=== PATIENT | male | born 1960 | race Hispanic/Latino ===

== ENCOUNTER 2019-05-14 13:21 | Emergency (ER) | payer BC ==
[2019-05-14] MEDS ORDERED: DIAZEPAM 10 MG/2 ML INJ SYRINGE ONE (13:52)
[2019-05-14 14:00] LABS: Absolute Lymphocytes (CBC) 1.6 K/uL (0.7-4.9); Basophils % 0.4 % (0-1.3); Hematocrit 41.5 % (39.6-49.0); Lymphocytes % 15.9 % (15.3-44.8); MPV 7.8 fL (7.6-11.3); RBC Red Blood Cell Count 4.58 M/uL (4.33-5.43)
[2019-05-14 14:14] LABS: ALT/SGPT 39 U/L (12-78); AST/SGOT 17 U/L (15-37); Albumin 3.8 g/dL (3.4-5.0); Alkaline Phosphatase 148 U/L (45-117); BUN Blood Urea Nitrogen 17 mg/dL (7-18); Bicarbonate 27 mmol/L (21-32); Bilirubin Direct < 0.1 mg/dL (0-0.2); Bilirubin Total 0.3 mg/dL (0.2-1.0); Glucose Level 116 mg/dL (74-106); Potassium 4.9 mmol/L (3.5-5.1); Protein, Total 7.1 g/dL (6.4-8.2); Sodium Level 143 mmol/L (136-145)
--- NOTE | 2019-05-14 14:34 | RAD REPORT ---
EXAM DESCRIPTION: CT - Head Brain Wo Cont - 05/14/2019 2:23 pm CLINICAL HISTORY: Transient alteration of awareness, dizziness COMPARISON: CT head September 2017 TECHNIQUE: Axial 5 mm thick images of the head were obtained without IV contrast. All CT scans are performed using dose optimization technique as appropriate and may include automated exposure control or mA/KV adjustment according to patient size. FINDINGS: No intracranial hemorrhage, mass, edema or shift of mid-line structures. No acute infarcti on changes seen. No abnormal extra-axial fluid collections. Ventricles are normal. Mastoid air cells and visualized portions of the paranasal sinuses are clear. No acute bony findings. IMPRESSION: Negative non-contrast CT head examination for acute findings. No significant change from comparison.
--- NOTE | 2019-05-14 15:18 | ER ---
Nurse's Notes [facility] Name: Deniz Clifford Age: 58 yrs Sex: Male : 1960 Arrival Date: 05/14/2019 Time: 13:23 Bed 18 Private MD: Mele Solitario Diagnosis: Benign paroxysmal vertigo Presentation: 05/14 13:36 Presenting complaint: Patient states: dizziness and sensation that patient is ss "flipping" when turning head only to the left. Symptoms began 1.5 hours ago. Transition of care: patient was not received from another setting of care. Onset of symptoms was May 14, 2019. Risk Assessment: Do you want to hurt yourself or someone else? Patient reports no desire to harm self or others. Initial Sepsis Screen: Does the patient meet any 2 criteria? No. Patient's initial sepsis screen is negative. Does the patient have a suspected source of infection? No. Patient's initial sepsis screen is negative. Care prior to arrival: None. 13:36 Method Of Arrival: Ambulatory ss 13:36 Acuity: EWA 3 ss Historical: - Allergies: 13:38 unknown medication given by dentist; ss - Home Meds: 14:48 meloxicam oral oral [Active]; Relpax Oral [Active]; mg2 - PMHx: 13:38 kidney cancer; Migraines; ss - PSHx: 13:38 right kidney removed; Hernia repair; metal plates in neck; metal apple in knee; ss - Immunization history:: Adult Immunizations up to date. - Social history:: Smoking status: Patient/guardian denies using tobacco. - Ebola Screening: : Patient denies exposure to infectious person Patient denies travel to an Ebola-affected area in the 21 days before illness onset. Screenin:47 Abuse screen: Denies threats or abuse. Denies injuries from another. Nutritional mg2 screening: No deficits noted. Tuberculosis screening: No symptoms or risk factors identified. Fall Risk Secondary diagnosis (15 points) dizziness. IV access (20 points). Assessment: 14:46 General: Appears in no apparent distress. comfortable, Behavior is calm, cooperative. mg2 Pain: Denies pain. Neuro: Level of Consciousness is awake, alert, obeys commands, Oriented to person, place, time, situation. Neuro: Reports dizziness, since this morning. Cardiovascular: Capillary refill < 3 seconds Patient's skin is warm and dry. Respiratory: Airway is patent Respiratory effort is even, unlabored, Respiratory pattern is regular, symmetrical. GI: No signs and/or symptoms were reported involving the gastrointestinal system. : No signs and/or symptoms were reported regarding the genitourinary system. EENT: No signs and/or symptoms were reported regarding the EENT system. Derm: Skin is intact, is healthy with good turgor, Skin is pink, warm \\T\\ dry. normal. Musculoskeletal: No signs and/or symptoms reported regarding the musculoskeletal system. 15:31 Reassessment: Patient appears in no apparent distress at this time. Patient denies pain mg2 at this time. Patient states feeling better. Vital Signs: 13:38 BP 139 / 94; Pulse 67; Resp 16; Temp 98.5(TE); Pulse Ox 97% on R/A; Weight 100.7 kg; ss Height 5 ft. 7 in. (170.18 cm); Pain 0/10; 14:48 BP 143 / 75; Pulse 65; Resp 18; Pulse Ox 100% on R/A; mg2 15:31 BP 135 / 78; Pulse 62; Resp 18; Temp 98.2; Pulse Ox 100% on R/A; Pain 0/10; mg2 13:38 Body Mass Index 34.77 (100.70 kg, 170.18 cm) ss ED Course: 13:23 Patient arrived in ED. as 13:23 Mele Solitario MD is Private Physician. as 13:34 Aquiles Lundberg NP is PHCP. pm1 13:34 Chaz Christie MD is Attending Physician. pm1 13:37 Triage completed. ss 13:38 Arm band placed on right wrist. ss 13:44 Rosendo Bailon RN is Primary Nurse. mg2 14:00 Inserted saline lock: 20 gauge in right antecubital area, using aseptic technique. mg2 Blood collected. 14:23 CT completed. Patient tolerated procedure well. Patient moved back from CT. kw1 14:24 CT Head Brain wo Cont In Process Unspecified. EDMS 14:47 No provider procedures requiring assistance completed. mg2 14:48 Patient has correct armband on for positive identification. Pulse ox on. NIBP on. mg2 Notified Nurse Practitioner and/or Physician Vacuum Tank Tender of. 15:32 IV discontinued, intact, bleeding controlled, No redness/swelling at site. Pressure mg2 dressing applied. Administered Medications: 13:59 Drug: Valium 5 mg Route: IVP; Site: right antecubital; mg2 14:37 Follow up: Response: No adverse reaction mg2 Outcome: 15:17 Discharge ordered by . pm1 15:32 Discharged to home ambulatory. mg2 15:32 Condition: stable 15:32 Discharge instructions given to patient, Instructed on discharge instructions, follow up and referral plans. medication usage, Demonstrated understanding of instructions, follow-up care, medications, Prescriptions given X 1. 15:32 Patient left the ED. mg2 Signatures: Dispatcher [employer] EDMS Karla Singh Shelby, JAZMINE RN ss Aquiles Lundberg, [employer] COMM[employer] RELATIONS SPECIALIST pm1 Trisha Jacobson 1 Rosendo Bailon RN RN mg2
--- NOTE | 2019-05-14 15:18 | EDPHYS ---
Physician Documentation [facility] Name: Deniz Clifford Age: 58 yrs Sex: Male : 1960 Arrival Date: 05/14/2019 Time: 13:23 Bed 18 Private MD: Mele Solitario ED Physician Chaz Christie HPI: 05/14 13:59 This 58 yrs old Male presents to ER via Ambulatory with complaints of pm1 Dizziness. 13:59 The patient presents with sense of spinning. pm1 13:59 Onset: The symptoms/episode began/occurred 1.5 hour(s) ago. Context: occurred at home, pm1 occurred while the patient was getting up from bed, just prior to the episode the patient experienced no apparent symptoms, No chest pain, shortness of breath, weakness, headache, palpitations, numbness, tingling. Associated signs and symptoms: Pertinent negatives: chest pain, head injury, headache, shortness of breath, vomiting. Severity of symptoms: in the emergency department the symptoms have improved Pain is currently a 0 / 10. Patient's baseline: Neuro: alert and fully oriented, Motor: no deficits, Ambulation: walks without assistance, Speech: normal, The patient has a previous history of vertigo. The patient has experienced a previous episode, approximately 1 years ago. Patient works night shifts. Woke up at noon and started experiencing the sensation of him spinning when he turned in his bed to his left side. [place] like he was a log rolling down a hill. Resolved with rolling to his right side. Sensation of spinning with sitting up. Historical: - Allergies: 13:38 unknown medication given by dentist; ss - Home Meds: 14:48 meloxicam oral oral [Active]; Relpax Oral [Active]; mg2 - PMHx: 13:38 kidney cancer; Migraines; ss - PSHx: 13:38 right kidney removed; Hernia repair; metal plates in neck; metal apple in knee; ss - Immunization history:: Adult Immunizations up to date. - Social history:: Smoking status: Patient/guardian denies using tobacco. - Ebola Screening: : Patient denies exposure to infectious person Patient denies travel to an Ebola-affected area in the 21 days before illness onset. ROS: 13:59 Constitutional: Negative for fever, chills, and weight loss, Eyes: Negative for injury, pm1 pain, redness, and discharge, ENT: Negative for injury, pain, and discharge, Neck: Negative for injury, pain, and swelling, Cardiovascular: Negative for chest pain, palpitations, and edema, Respiratory: Negative for shortness of breath, cough, wheezing, and pleuritic chest pain, Abdomen/GI: Negative for abdominal pain, nausea, vomiting, diarrhea, and constipation, Back: Negative for injury and pain, MS/Extremity: Negative for injury and deformity, Skin: Negative for injury, rash, and discoloration. 13:59 Neuro: Positive for dizziness, Negative for headache, numbness, tingling, weakness. Exam: 13:59 Constitutional: This is a well developed, well nourished patient who is awake, alert, pm1 and in no acute distress. Head/Face: Normocephalic, atraumatic. Neck: Trachea midline, no thyromegaly or masses palpated, and no cervical lymphadenopathy. Supple, full range of motion without nuchal rigidity, or vertebral point tenderness. No Meningismus. Chest/axilla: Normal chest wall appearance and motion. Nontender with no deformity. No lesions are appreciated. Cardiovascular: Regular rate and rhythm with a normal S1 and S2. No gallops, murmurs, or rubs. No pulse deficits. Respiratory: Lungs have equal breath sounds bilaterally, clear to auscultation and percussion. No rales, rhonchi or wheezes noted. No increased work of breathing, no retractions or nasal flaring. Abdomen/GI: Soft, non-tender, with normal bowel sounds. No distension or tympany. No guarding or rebound. No evidence of tenderness throughout. Back: No spinal tenderness. No costovertebral tenderness. Full range of motion. Skin: Warm, dry with normal turgor. Normal color with no rashes, no lesions, and no evidence of cellulitis. MS/ Extremity: Pulses equal, no cyanosis. Neurovascular intact. Full, normal range of motion. 13:59 Neuro: Orientation: is normal, Cranial nerves: CN II- XII are normal as tested, Cerebellar function: normal finger to nose testing, Motor: is normal, moves all fours, strength is normal, strength is 5/5 in all extremities. 15:02 Neuro: Positive roxana-hallpike maneuver. sensation of spinning reproduced with head pm1 tilted down 45 degrees and turned to the left. Symptoms not present with head turned to the right. Vertigo resolved less than 15 seconds with patient sitting up from lying position . Vital Signs: 13:38 BP 139 / 94; Pulse 67; Resp 16; Temp 98.5(TE); Pulse Ox 97% on R/A; Weight 100.7 kg; ss Height 5 ft. 7 in. (170.18 cm); Pain 0/10; 14:48 BP 143 / 75; Pulse 65; Resp 18; Pulse Ox 100% on R/A; mg2 15:31 BP 135 / 78; Pulse 62; Resp 18; Temp 98.2; Pulse Ox 100% on R/A; Pain 0/10; mg2 13:38 Body Mass Index 34.77 (100.70 kg, 170.18 cm) ss MDM: 13:35 Patient medically screened. pm1 15:16 Data reviewed: vital signs. Data interpreted: Pulse oximetry: on room air is 100 %. pm1 Interpretation: normal. Counseling: I had a detailed discussion with the patient and/or guardian regarding: the historical points, exam findings, and any diagnostic results supporting the discharge/admit diagnosis, lab results, radiology results, the need for outpatient follow up, to return to the emergency department if symptoms worsen or persist or if there are any questions or concerns that arise at home. 05/14 13:43 Order name: Basic Metabolic Panel; Complete Time: 14:21 pm1 05/14 13:43 Order name: CBC with Diff; Complete Time: 14:21 pm1 05/14 13:43 Order name: CT Head Brain wo Cont; Complete Time: 14:36 pm1 05/14 13:43 Order name: LFT's; Complete Time: 14:21 pm1 05/14 13:43 Order name: EKG; Complete Time: 13:43 pm1 05/14 13:43 Order name: EKG - Nurse/Tech; Complete Time: 13:59 pm1 05/14 13:43 Order name: IV Saline Lock; Complete Time: 13:59 pm1 05/14 13:43 Order name: Labs collected and sent; Complete Time: 13:59 pm1 Administered Medications: 13:59 Drug: Valium 5 mg Route: IVP; Site: right antecubital; mg2 14:37 Follow up: Response: No adverse reaction mg2 Disposition: 15:41 Co-signature as Attending Physician, Chaz Christie MD. Disposition: 05/14/19 15:17 Discharged to Home. Impression: Benign paroxysmal vertigo. - Condition is Stable. - Discharge Instructions: Benign Positional Vertigo. - Prescriptions for Valium 5 mg Oral Tablet - take 1 tablet by ORAL route every 8 hours As needed; 20 tablet. - Work release form, Medication Reconciliation Form, Thank You Letter, Antibiotic Education, Prescription Opioid Use form. - Follow up: Emergency Department; When: As needed; Reason: Worsening of condition. Follow up: Private Physician; When: 2 - 3 days; Reason: Recheck today's complaints, Continuance of care, Re-evaluation by your physician. - Problem is new. - Symptoms have improved. Signatures: Dispatcher [employer] EDMS Taty Rich RN RN Aquiles Lundberg, PIECE CUTTER PIECE CUTTER pm1 Chaz Christie MD MD Rosendo Bailon RN RN mg2 Corrections: (The following items were deleted from the chart) 15:32 15:17 05/14/2019 15:17 Discharged to Home. Impression: Benign paroxysmal vertigo. mg2 Condition is Stable. Forms are Medication Reconciliation Form, Thank You Letter, Antibiotic Education, Prescription Opioid Use. Follow up: Emergency Department; When: As needed; Reason: Worsening of condition. Follow up: Private Physician; When: 2 - 3 days; Reason: Recheck today's complaints, Continuance of care, Re-evaluation by your physician. Problem is new. Symptoms have improved. pm1
[2019-05-14 16:07] VITALS: O2SAT 100
[2019-05-14 16:08] VITALS: BP 135/78; TEMP 98.2
--- NOTE | 2019-05-15 17:22 | EKG ---
Test Date: 2019-05-14 Test Time: 14:01:33 Financial Operations Consultant: MEASUREMENT RESULTS: Intervals: Rate: 72 SD: 176 QRSD: 92 QT: 358 QTc: 392 [place]: P: 43 SD: 176 QRS: 46 T: 48 INTERPRETIVE STATEMENTS: Normal sinus rhythm Normal ECG Compared to ECG 09/28/2017 18:23:35 No significant changes Electronically Signed On 05-15-19 17:21:36 CDT by Tacho Davis
== END 2019-05-14 15:32 | disposition home or self-care (01) ==
LOC: ER 13:21
DX: H81.10 Benign paroxysmal vertigo, unspecified ear (principal); Z85.528 Personal history of other malignant neoplasm of kidney
CPT/HCPCS: 93005; 85025; 80048; 36415; 80076; 70450; 96374; 99284; J3360

== ENCOUNTER 2019-10-30 00:59 | Observation (INO) | payer BC ==
[2019-10-30 01:22] LABS: Absolute Lymphocytes (CBC) 2.9 K/uL (0.7-4.9); Basophils % 0.5 % (0-1.3); Hematocrit 41.4 % (39.6-49.0); Lymphocytes % 28.6 % (15.3-44.8); MPV 7.9 fL (7.6-11.3); RBC Red Blood Cell Count 4.58 M/uL (4.33-5.43)
[2019-10-30 01:23] LABS: Protime INR 0.97
[2019-10-30 01:49] LABS: ALT/SGPT 40 U/L (12-78); AST/SGOT 19 U/L (15-37); Albumin 3.6 g/dL (3.4-5.0); Alkaline Phosphatase 145 U/L (45-117); BUN Blood Urea Nitrogen 19 mg/dL (7-18); Bicarbonate 26 mmol/L (21-32); Bilirubin Direct < 0.1 mg/dL (0-0.2); Bilirubin Total 0.3 mg/dL (0.2-1.0); Glucose Level 116 mg/dL (74-106); Magnesium 2.3 mg/dL (1.8-2.4); NT PRO-BNP 16 pg/mL (<125); Protein, Total 7.4 g/dL (6.4-8.2); Sodium Level 142 mmol/L (136-145); Troponin (Emerg Dept Use Only) < 0.02 ng/mL (0.0-0.045)
--- NOTE | 2019-10-30 02:42 | EDPHYS ---
Physician Documentation [facility] Name: Deniz Clifford Age: 59 yrs Sex: Male : 1960 Arrival Date: 10/30/2019 Time: 01:00 Bed 13 Private MD: ED Physician Jovon Snyder HPI: 10/29 03:14 This 59 yrs old Male presents to ER via EMS with complaints of Chest Pain. tw4 03:14 The patient or guardian reports chest pain that is located primarily in the anterior tw4 chest wall. Onset: today. The pain does not radiate. Associated signs and symptoms: Pertinent positives: diaphoresis. Duration: The patient or guardian reports a single episode. Severity of pain: At its worst the pain was. Historical: - Allergies: 01:05 unknown medication given by dentist; rr5 - Home Meds: 01:05 Relpax Oral [Active]; meloxicam Oral [Active]; rr5 - PMHx: 01:05 kidney cancer; Migraines; rr5 - PSHx: 01:05 Hernia repair; Knee surgery; leg surgery; rr5 - Immunization history:: Adult Immunizations up to date. - Social history:: Smoking status: unknown Patient uses alcohol, occasionally. Patient/guardian denies using street drugs. ROS: 03:14 Constitutional: Negative for fever, chills, and weight loss, Eyes: Negative for injury, tw4 pain, redness, and discharge, Respiratory: Negative for shortness of breath, cough, wheezing, and pleuritic chest pain, Abdomen/GI: Negative for abdominal pain, nausea, vomiting, diarrhea, and constipation, Back: Negative for injury and pain, MS/Extremity: Negative for injury and deformity, Skin: Negative for injury, rash, and discoloration, Neuro: Negative for headache, weakness, numbness, tingling, and seizure. 03:14 Cardiovascular: Positive for chest pain, Negative for edema, orthopnea, palpitations, paroxysmal nocturnal dyspnea. Exam: 03:14 Constitutional: This is a well developed, well nourished patient who is awake, alert, tw4 and in no acute distress. Head/Face: Normocephalic, atraumatic. Chest/axilla: Normal chest wall appearance and motion. Nontender with no deformity. No lesions are appreciated. Cardiovascular: Regular rate and rhythm with a normal S1 and S2. No gallops, murmurs, or rubs. Normal PMI, no JVD. No pulse deficits. Respiratory: Lungs have equal breath sounds bilaterally, clear to auscultation and percussion. No rales, rhonchi or wheezes noted. No increased work of breathing, no retractions or nasal flaring. Abdomen/GI: Soft, non-tender, with normal bowel sounds. No distension or tympany. No guarding or rebound. No evidence of tenderness throughout. Back: No spinal tenderness. No costovertebral tenderness. Full range of motion. MS/ Extremity: Pulses equal, no cyanosis. Neurovascular intact. Full, normal range of motion. Neuro: Awake and alert, GCS 15, oriented to person, place, time, and situation. Cranial nerves II-XII grossly intact. Motor strength 5/5 in all extremities. Sensory grossly intact. Cerebellar exam normal. Normal gait. Vital Signs: 01:05 BP 150 / 91; Pulse 61; Resp 18; Temp 98.7; Pulse Ox 99% ; Weight 102.06 kg; Height 5 rr5 ft. 7 in. (170.18 cm); Pain 0/10; 01:30 BP 143 / 87; Pulse 74; Resp 17; Pulse Ox 96% on R/A; rv 02:10 BP 112 / 75; Pulse 75; Resp 16; Pulse Ox 99% ; rr5 03:00 BP 121 / 75; Pulse 80; Resp 17; Pulse Ox 100% on R/A; rr5 03:59 BP 129 / 84; Pulse 79; Resp 17; Temp 98.9; Pulse Ox 99% ; rr5 04:30 BP 122 / 88; Pulse 75; Resp 16; Pulse Ox 99% ; rr5 01:05 Body Mass Index 35.24 (102.06 kg, 170.18 cm) rr5 MDM: 01:04 Patient medically screened. tw4 03:26 Differential diagnosis: acute myocardial infarction, acute pericarditis, esophagitis, tw4 gastritis, gastroesophageal reflux disease (GERD), myocarditis, peptic ulcer disease, pericarditis, pulmonary embolus, stable angina. HEART Score: History: Moderately Suspicious (1), ECG: Normal (0), Age: > 45 and < 65 years (1), Risk Factors: 1 or 2 risk factors (1), Troponin: < or = 1 x Normal Limit (0), Total Score = 3. The patient was given aspirin in the Emergency Department. Data reviewed: vital signs, nurses notes. Data interpreted: Pulse oximetry: Interpretation:. Counseling: I had a detailed discussion with the patient and/or guardian regarding: the historical points, exam findings, and any diagnostic results supporting the discharge/admit diagnosis, lab results, radiology results. Physician consultation: Dulce Esquivel MD regarding admission, to the telemetry unit. patient's condition, and will see patient in ED. 10/29 01:15 Order name: Basic Metabolic Panel; Complete Time: :59 rr5 10/29 01:59 Interpretation: Normal except: CL 109; GLUC 116; BUN 19; CRE 1.45; GFR 50. tw4 10/29 01:15 Order name: CBC with Diff; Complete Time: :59 rr10/29 01:15 Order name: LFT's; Complete Time: :59 rr5 10/29 01:15 Order name: Magnesium; Complete Time: 59 10/29 01:15 Order name: NT PRO-BNP; Complete Time: :59 rr10/29 01:15 Order name: PT-INR; Complete Time: :59 rr5 10/29 01:15 Order name: Troponin (emerg Dept Use Only); Complete Time: :59 rr5 10/29 01:15 Order name: XRAY Chest (1 view) 10/29 01:15 Order name: EKG; Complete Time: 01:16 5 10/29 01:15 Order name: Cardiac monitoring; Complete Time: :15 10/29 01:15 Order name: EKG - Nurse/Tech; Complete Time: 01:15 rr10/29 01:15 Order name: IV Saline Lock; Complete Time: 01:15 10/29 01:15 Order name: Labs collected and sent; Complete Time: :15 rr10/29 01:15 Order name: O2 Per Protocol; Complete Time: :15 10/29 01:15 Order name: O2 Sat Monitoring; Complete Time: 01:15 rr5 EC:14 Rate is 66 beats/min. Rhythm is regular. QRS [place] is Normal. [place] interval is normal. QRS tw4 interval is normal. QT interval is normal. No Q waves. T waves are Normal. No ST changes noted. Clinical impression: Normal ECG. Interpreted by me. Reviewed by me. Administered Medications: No medications were administered Disposition: 10/30/19 02:41 Hospitalization ordered by Dulce Esquivel for Observation. Preliminary diagnosis is Other chest pain. - Bed requested for Telemetry/MedSurg (observation). - Status is Observation. rr5 - Condition is Stable. - Problem is new. - Symptoms have improved. Signatures: Dispatcher [employer] EDMS Apple Almaraz, RN RN Jovon Snyder MD MD tw4 Bao Young RN RN rr5 Corrections: (The following items were deleted from the chart) 03:14 02:41 Hospitalization Ordered by Vinay Sheridan DO for Observation. Preliminary tw4 diagnosis is Other chest pain. Bed requested for Telemetry/MedSurg (observation). Status is Observation. Condition is Stable. Problem is new. Symptoms have improved. tw4 03:27 03:14 10/30/2019 02:41 Hospitalization Ordered by Dulce Esquivel MD for Observation. cg Preliminary diagnosis is Other chest pain. Bed requested for Telemetry/MedSurg (observation). Status is Observation. Condition is Stable. Problem is new. Symptoms have improved. tw4 03:56 03:27 10/30/2019 02:41 Hospitalization Ordered by Dulce Esquivel MD for Observation. cg Preliminary diagnosis is Other chest pain. Bed requested for Telemetry/MedSurg (observation). Status is Observation. Condition is Stable. Problem is new. Symptoms have improved. 04:41 03:56 10/30/2019 02:41 Hospitalization Ordered by Dulce Esquivel MD for Observation. rr5 Preliminary diagnosis is Other chest pain. Bed requested for Telemetry/MedSurg (observation). Status is Observation. Condition is Stable. Problem is new. Symptoms have improved.
--- NOTE | 2019-10-30 02:42 | ER ---
Nurse's Notes [facility] Name: Deniz Clifford Age: 59 yrs Sex: Male : 1960 Arrival Date: 10/30/2019 Time: 01:00 Bed 13 Private MD: Diagnosis: Other chest pain Presentation: 10/29 01:05 Chief complaint: EMS states: patient complaint of left sided chest pain started 1 1/ rr5 hour ago (2330). described as on and off, sharp pain. negative for SOB, diaphoresis. breath sound is clear. 01:05 Coronavirus screen: Proceed with normal triage. Patient denies a cough. Patient denies rr5 shortness of breath or difficulty breathing. Patient denies measured and/or subjective temperature greater than 100.4F prior to today's visit. Patient denies travel on a cruise ship or to a country the [facility] currently lists as an affected area. Patient denies contact with known and/or suspected case of COVID-19. Ebola Screen: Patient negative for fever greater than or equal to 101.5 degrees Fahrenheit, and additional compatible Ebola Virus Disease symptoms Patient denies exposure to infectious person. Patient denies travel to an Ebola-affected area in the 21 days before illness onset. Initial Sepsis Screen: Does the patient meet any 2 criteria? No. Patient's initial sepsis screen is negative. Does the patient have a suspected source of infection? No. Patient's initial sepsis screen is negative. Risk Assessment: Do you want to hurt yourself or someone else? Patient reports no desire to harm self or others. Onset of symptoms was October 29, 2019 at 23:30. 01:05 Method Of Arrival: EMS: [facility] rr5 01:05 Acuity: EWA 3 rr5 Historical: - Allergies: 01:05 unknown medication given by dentist; rr5 - Home Meds: 01:05 Relpax Oral [Active]; meloxicam Oral [Active]; rr5 - PMHx: 01:05 kidney cancer; Migraines; rr5 - PSHx: 01:05 Hernia repair; Knee surgery; leg surgery; rr5 - Immunization history:: Adult Immunizations up to date. - Social history:: Smoking status: unknown Patient uses alcohol, occasionally. Patient/guardian denies using street drugs. Screenin:16 Abuse screen: Denies threats or abuse. Denies injuries from another. Nutritional rr5 screening: No deficits noted. Tuberculosis screening: No symptoms or risk factors identified. Fall Risk IV access (20 points). Total Villatoro Fall Scale indicates No Risk (0-24 pts). Assessment: 01:05 General: Appears in no apparent distress. comfortable, Behavior is calm, cooperative, rr5 appropriate for age. 01:05 Pain: Complains of pain in chest Pain does not radiate. Pain currently is 0 out of 10 rr5 on a pain scale. Quality of pain is described as aching, Pain began suddenly, Is intermittent. Neuro: Level of Consciousness is awake, alert, obeys commands, Oriented to person, place, time, situation. Cardiovascular: Reports chest pain, Denies diaphoresis, shortness of breath, Capillary refill < 3 seconds Patient's skin is warm and dry. Respiratory: Airway is patent Respiratory effort is even, unlabored, Respiratory pattern is regular, symmetrical, Denies cough. GI: No signs and/or symptoms were reported involving the gastrointestinal system. : No signs and/or symptoms were reported regarding the genitourinary system. EENT: No signs and/or symptoms were reported regarding the EENT system. Derm: Skin is intact, is healthy with good turgor, Skin temperature is warm. Musculoskeletal: Circulation, motion, and sensation intact. Capillary refill < 3 seconds. 02:10 Reassessment: Patient appears in no apparent distress at this time. Patient and/or rr5 family updated on plan of care and expected duration. Pain level reassessed. Patient is alert, oriented x 3, equal unlabored respirations, skin warm/dry/pink. ED provider will speak to hospitalist for admission. 03:30 Reassessment: Patient appears in no apparent distress at this time. No changes from rr5 previously documented assessment. dr. neal at bedside examining the patient. 04:39 Reassessment: Patient appears in no apparent distress at this time. Patient is alert, rr5 oriented x 3, equal unlabored respirations, skin warm/dry/pink. admitted to room 211. vitally stable, no complaints made. with IV cannula intact. Patient denies pain at this time. Vital Signs: 01:05 BP 150 / 91; Pulse 61; Resp 18; Temp 98.7; Pulse Ox 99% ; Weight 102.06 kg; Height 5 rr5 ft. 7 in. (170.18 cm); Pain 0/10; 01:30 BP 143 / 87; Pulse 74; Resp 17; Pulse Ox 96% on R/A; rv 02:10 BP 112 / 75; Pulse 75; Resp 16; Pulse Ox 99% ; rr5 03:00 BP 121 / 75; Pulse 80; Resp 17; Pulse Ox 100% on R/A; rr5 03:59 BP 129 / 84; Pulse 79; Resp 17; Temp 98.9; Pulse Ox 99% ; rr5 04:30 BP 122 / 88; Pulse 75; Resp 16; Pulse Ox 99% ; rr5 01:05 Body Mass Index 35.24 (102.06 kg, 170.18 cm) rr5 ED Course: 01:00 Patient arrived in ED. ds1 01:04 Jovon Snyder MD is Attending Physician. tw4 01:05 Arm band placed on right wrist. rr5 01:05 EKG completed in triage. Results shown to MD. rr5 01:05 roll skinner on. Pulse ox on. NIBP on. rr5 01:10 Inserted saline lock: 20 gauge in right antecubital area, using aseptic technique. rr5 Blood collected. 01:10 No provider procedures requiring assistance completed. Patient maintains SpO2 rr5 saturation greater than 95% on room air. 01:14 Bao Young, JAZMINE is Primary Nurse. rr5 01:19 Triage completed. rr5 01:23 Patient has correct armband on for positive identification. Placed in gown. Bed in low rr5 position. Call light in reach. 01:40 XRAY Chest (1 view) In Process Unspecified. EDMS 02:41 Vinay Sheridan DO is Hospitalizing Provider. tw4 03:14 Hospitalizing Provider role handed off by Vinay Sheridan DO tw4 03:14 Dulce Esquivel MD is Hospitalizing Provider. tw4 04:37 Patient admitted, IV remains in place. intact, No redness/swelling at site. rr5 Administered Medications: No medications were administered Outcome: 02:41 Decision to Hospitalize by Provider. tw4 04:37 Admitted to Med/surg accompanied by tech, via wheelchair, room 211, with chart, Report rr5 called to [facility] 04:37 Condition: stable 04:37 Instructed on the need for admit. 04:41 Patient left the ED. rr5 Signatures: Dispatcher [employer] EDMO Marifer Franco ds1 Jovon Snyder MD MD tw4 Yanick Bettencourt RN RN Bao Aranda RN RN rr5
[2019-10-30] MEDS ORDERED: NITROGLYCERIN 0.4 MG/TAB SL PRN (04:23)
[2019-10-30] MEDS ORDERED: MORPHINE 4 MG/ML SYR IV PRN (04:23)
[2019-10-30] MEDS ORDERED: ACETAMINOPHEN 500 MG TAB PO PRN (04:23)
--- NOTE | 2019-10-30 04:31 | P.HP ---
Certification for Inpatient Patient admitted to: Inpatient With expected LOS: >2 Midnights Practitioner: I am a practitioner with admitting privileges, knowledge of patient current condition, hospital course, and medical plan of care. Services: Services provided to patient in accordance with Admission requirements found in Title 42 Section 412.3 of the Code of Federal Regulations Patient History Date of Service: 10/30/19 Reason for admission: Chest pain History of Present Illness: Patient is a 59-year-old male with past medical history of kidney cancer status post nephrectomy comes in with sudden onset of chest pain while at work. Pain is intermittent left-sided not associated with any nausea or vomiting. No diaphoresis. Patient has not experienced pain like this previously. Symptoms were intermittent moderate and progressive. Patient came into the ER for further evaluation In the ER his initial cardiac enzyme and EKG were negative. Patient was referred for admission Allergies unknown medication Allergy (Uncoded 09/28/17 19:40) Unknown Home medications list reviewed: Yes Home Medications: Acetaminophen [Tylenol] 325 mg PO QIDP PRN 08/21/14 Eletriptan HBr [Relpax] 40 mg PO PRN PRN 08/21/14 - Past Medical/Surgical History -: History of kidney cancer -: Migraines -: Hernia repair -: Knee surgery -: Leg surgery - Family History Mother -: Diabetes Brother -: Stroke - Social History Smoking Status: Light Tobacco smoker (1-9 cigarettes/day) Alcohol use: Yes Place of Residence: Home Review of Systems 10-point ROS is otherwise unremarkable Cardiovascular: As per HPI Physical Examination - Vital Signs Temperature: 98.7 F Blood Pressure: 150/91 Pulse: 61 Respirations: 18 Pulse Ox (%): 99 - Physical Exam General: Alert, Oriented x3, Mild distress, Obese HEENT: Atraumatic, PERRLA, Mucous membr. moist/pink, EOMI, Sclerae nonicteric Neck: Supple, JVD not distended Respiratory: Clear to auscultation bilaterally, Normal air movement Cardiovascular: No edema, Normal pulses, Regular rate/rhythm, Normal S1 S2 Gastrointestinal: Normal bowel sounds, Soft and benign, Non-distended, No tenderness Musculoskeletal: No tenderness Integumentary: No rashes Neurological: Normal speech, Normal strength at 5/5 x4 extr, Normal tone, Normal affect - Studies Laboratory Data (last 24 hrs) 10/30/19 01:10: PT 11.5, INR 0.97 10/30/19 01:10: WBC 10.3, Hgb 14.2, Hct 41.4, Plt Count 219 10/30/19 01:10: Sodium 142, Potassium 4.0, BUN 19 H, Creatinine 1.45 H, Glucose 116 H, Magnesium 2.3, Total Bilirubin 0.3, AST 19, ALT 40, Alkaline Phosphatase 145 H Assessment and Plan - Plan Chest pain rule out ACS. Initial cardiac enzyme and EKG normal. Will start on chest pain guidelines with beta willa, aspirin and statin. Consult cardiology. Acute versus acute on chronic kidney injury. Monitor creatinine level. Avoid nephrotoxins. IV fluids Obesity counseled History of renal cancer status post nephrectomy History of migraine headaches stable. Resume home medications as appropriate DVT prophylaxis with Lovenox Plan is to rule out ACS if negative can likely follow up with cardiology as outpatient for stress test and echocardiogram - Advance Directives Does patient have a Living Will: No Does patient have a Durable POA for Healthcare: No - Code Status/Comfort Care Code Status Assessed: Yes
[2019-10-30 05:21] VITALS: BMI 34.8
[2019-10-30 05:23] LABS: HDL Cholesterol 37 mg/dL (40-60); LDL Cholesterol, Calculated 92 (<130); Troponin I < 0.02 ng/mL (0.0-0.045)
[2019-10-30] MEDS ORDERED: ELETRIPTAN HBR 40 MG PO PRN (07:38)
[2019-10-30] MEDS ORDERED: lisinopriL 10 MG TAB PO SCH (09:00)
[2019-10-30] MEDS ORDERED: METOPROLOL TAR 50 MG TAB PO SCH (09:00)
[2019-10-30] MEDS ORDERED: ENOXAPARIN 40 MG/0.4 ML SQ SCH (09:00)
[2019-10-30] MEDS ORDERED: ASPIRIN EC 81 MG TAB PO SCH (09:00)
--- NOTE | 2019-10-30 09:31 | CON ---
Date of Consultation: 10/30/2019 Reason For Consultation: Chest pain. History Of Present Illness: Mr. Clifford is a 59-year-old [place] male without any signific ant past cardiac history. He has a history of migraine and he is status post right nephrectomy secon lorelei to renal cancer. 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 The day after that, he developed sharp, sta bbing chest pain throughout the chest that would come and go for seconds and sometimes will come back every 5 minutes. His last episode, however, lasted about an hour and a half without any nausea, vom iting, diaphoresis, PND, orthopnea, pedal edema, palpitations, or syncope. His EKG was normal. His troponin was negative. His chest x-ray was negative. Allergies: NONE. Medications: At home include meloxicam. Review of Systems: Negative. Social History: Negative. Family History: Positive for strokes. Physical Examination: Vital Signs: Stable. He was afebrile. General: In no acute distress. HEENT: Negative. Neck: Supple with no bruit. Chest: Clear to auscultation and percussion. Cardiac: Revealed a regular rhythm and rate. No murmurs, gallops, or rubs. Abdomen: Benign. Extremities: Revealed no clubbing, cyanosis, or edema. Laboratory Data: His EKG was normal. His creatinine was 1.45. Triglyceride was 395, cholesterol of 208. Impression And Plan: Chest pain, atypical, equivocal, possible angina, although unlikely. The patie nt has a family history of heart disease. He has mixed dyslipidemia. His CPK was negative. MB was negative. Troponin was negative. EKG was negative. He is pain-free now. I am comfortable with him going home. I will make arrangements for him to have an echocardiogram and an MPI. Regarding his t riglyceride, I recommended a low carb diet for now and we will recheck his blood work in about 3 jose carlos hs. We will need to follow up on his kidney function and I will take care of that down the road. e case was discussed with Dr. Esquivel. PIERRE/RIKIL Voice ID: [id number] Report ID: [id number]
[2019-10-30 10:07] VITALS: O2SAT 96
--- NOTE | 2019-10-30 11:39 | RAD REPORT ---
EXAM DESCRIPTION: RAD - Chest Single View - 10/30/2019 1:41 am CLINICAL HISTORY: CHEST PAIN Chest pain. COMPARISON: Chest Single View dated 04/04/2016 FINDINGS: Portable technique limits examination quality. The lungs are grossly clear. The heart is normal in size. No displaced fractures.Cervical hardware pl ate. IMPRESSION: No acute intrathoracic process suspected.
--- NOTE | 2019-10-30 14:22 | EKG ---
Test Date: 2019-10-30 Test Time: 01:03:03 Instructor Painting: RR MEASUREMENT RESULTS: Intervals: Rate: 66 CA: 164 QRSD: 96 QT: 378 QTc: 396 [place]: P: 64 CA: 164 QRS: 77 T: 62 INTERPRETIVE STATEMENTS: Normal sinus rhythm Normal ECG Compared to ECG 05/14/2019 14:01:33 No significant changes Electronically Signed On 10-30-19 14:22:29 CDT by Jd Douglass
[2019-10-30 15:20] VITALS: BP 127/80; TEMP 98.5
[2019-10-30] MEDS ORDERED: ATORVASTATIN 40 MG TAB PO SCH (21:00)
== END 2019-10-30 13:57 | disposition home or self-care (01) ==
LOC: ER 00:59 → ERHOLD 03:19 → 2ND 04:21
PROVIDERS: ADMIT Family Medicine; ATTEND Family Medicine
DX: R07.89 Other chest pain (principal); N17.9 Acute kidney failure, unspecified; E78.2 Mixed hyperlipidemia; G43.909 Migraine, unspecified, not intractable, without status migrainosus; E66.9 Obesity, unspecified; Z68.34 Body mass index [BMI] 34.0-34.9, adult; Z71.3 Dietary counseling and surveillance; F17.210 Nicotine dependence, cigarettes, uncomplicated; Z85.528 Personal history of other malignant neoplasm of kidney; Z90.5 Acquired absence of kidney; Z82.3 Family history of stroke; Z83.3 Family history of diabetes mellitus
CPT/HCPCS: 93005; 85025; 80048; 36415; 83735; 85610; 80061; 80076; 84484 ×3; 83880; 71045; 94760; 99285; J1650; G0378 ×2